=== PATIENT | female | born 1940 ===

== ENCOUNTER 2022-09-25 06:00 | Outpatient (RCR) | payer MEDICARE, SELFPAY | END 2022-09-28 23:59 | disposition home or self-care (01) | LOC: SPT 06:00 | PROVIDERS: Visit Provider Internal Medicine | DX: M99.05 Segmental and somatic dysfunction of pelvic region (principal) | CPT/HCPCS: 97161; 97530 ==

== ENCOUNTER 2022-09-29 06:00 | Outpatient (RCR) | payer MEDICARE, SELFPAY | END 2022-10-28 23:59 | disposition home or self-care (01) | LOC: SPT 06:00 | PROVIDERS: Visit Provider Internal Medicine | DX: M99.05 Segmental and somatic dysfunction of pelvic region (principal) | CPT/HCPCS: 97140; 97530 ==